=== PATIENT | female | born 1955 | race Caucasian/White ===

== ENCOUNTER → 2016-09-30 | Outpatient (CLI) | payer BC ==
--- NOTE | 2016-10-01 07:07 | MM ---
Reason for exam: screening (asymptomatic). Last mammogram was performed 1 year and 2 months ago. History: Patient is postmenopausal. Family history of breast cancer in mother at age 75 and breast cancer in sister at age 50. Physical Findings: A clinical breast exam by your physician is recommended on an annual basis and results should be correlated with mammographic findings. MG 3D Screening Mammo W/Cad Bilateral CC and MLO view(s) were taken. Prior study comparison: July 24, 2015, bilateral MG 3d screening mammo w/cad. There are scattered fibroglandular densities. No significant changes when compared with prior studies. ASSESSMENT: Benign, BI-RAD 2 RECOMMENDATION: Routine screening mammogram of both breasts in 1 year.
== END | disposition home or self-care (01) ==
LOC: RADMAMWWP 07:03
PROVIDERS: ATTEND Family Medicine
DX: Z12.31 Encounter for screening mammogram for malignant neoplasm of breast (principal)
CPT/HCPCS: 77063; G0202

== ENCOUNTER → 2018-02-26 | Outpatient (CLI) | payer BC ==
--- NOTE | 2018-02-27 12:13 | MM ---
Reason for exam: screening (asymptomatic). Last mammogram was performed 1 year and 5 months ago. History: Patient is postmenopausal. Family history of breast cancer in mother at age 75 and breast cancer in sister at age 50. Physical Findings: A clinical breast exam by your physician is recommended on an annual basis and results should be correlated with mammographic findings. MG 3D Screening Mammo W/Cad Bilateral CC and MLO view(s) were taken. Prior study comparison: September 30, 2016, bilateral MG 3d screening mammo w/cad. July 24, 2015, bilateral MG 3d screening mammo w/cad. The breast tissue is heterogeneously dense. This may lower the sensitivity of mammography. Stable benign calcifications. There is no discrete abnormality. No significant changes when compared with prior studies. ASSESSMENT: Benign, BI-RAD 2 RECOMMENDATION: Routine screening mammogram of both breasts in 1 year.
== END | disposition home or self-care (01) ==
LOC: RADMAMWWP 07:17
PROVIDERS: ATTEND Family Medicine
DX: Z12.31 Encounter for screening mammogram for malignant neoplasm of breast (principal)
CPT/HCPCS: 77063; 77067

== ENCOUNTER → 2020-03-23 | Outpatient (CLI) | payer BC ==
--- NOTE | 2020-03-24 09:42 | MM ---
Reason for exam: screening (asymptomatic). Last mammogram was performed 2 years and 1 month ago. History: Patient is postmenopausal. Family history of breast cancer in mother at age 75 and breast cancer in sister at age 50. Physical Findings: A clinical breast exam by your physician is recommended on an annual basis and results should be correlated with mammographic findings. MG 3D Screening Mammo W/Cad Bilateral CC and MLO view(s) were taken. Prior study comparison: February 26, 2018, bilateral MG 3d screening mammo w/cad. September 30, 2016, bilateral MG 3d screening mammo w/cad. There are scattered fibroglandular densities. There are benign appearing vascular calcifications in the right breast. There is chronic nodularity in the left breast. There is no discrete abnormality. ASSESSMENT: Benign, BI-RAD 2 RECOMMENDATION: Routine screening mammogram of both breasts in 1 year.
== END | disposition home or self-care (01) ==
LOC: RADMAMWWP 08:14
PROVIDERS: ATTEND Family Medicine
DX: Z12.31 Encounter for screening mammogram for malignant neoplasm of breast (principal); Z80.3 Family history of malignant neoplasm of breast
CPT/HCPCS: 77063; 77067

== ENCOUNTER → 2021-05-02 | Outpatient (CLI) | payer BC ==
--- NOTE | 2021-05-03 15:05 | MM ---
Reason for exam: screening (asymptomatic). Last mammogram was performed 1 year and 1 month ago. History: Patient is postmenopausal. Family history of breast cancer in mother at age 75 and breast cancer in sister at age 50. Physical Findings: A clinical breast exam by your physician is recommended on an annual basis and results should be correlated with mammographic findings. MG 3D Screening Mammo W/Cad Bilateral CC and MLO view(s) were taken. Prior study comparison: March 23, 2020, bilateral MG 3d screening mammo w/cad. February 26, 2018, bilateral MG 3d screening mammo w/cad. The breast tissue is heterogeneously dense. This may lower the sensitivity of mammography. There are benign appearing round vascular calcifications bilaterally. There is no discrete abnormality. ASSESSMENT: Benign, BI-RAD 2 RECOMMENDATION: Routine screening mammogram of both breasts in 1 year.
== END | disposition home or self-care (01) ==
LOC: RADMAMWWP 07:22
PROVIDERS: ATTEND Family Medicine
DX: Z12.31 Encounter for screening mammogram for malignant neoplasm of breast (principal); Z78.0 Asymptomatic menopausal state; Z80.3 Family history of malignant neoplasm of breast
CPT/HCPCS: 77063; 77067

== ENCOUNTER → 2022-05-16 | Outpatient (CLI) | payer MEDICARE ==
--- NOTE | 2022-05-17 09:22 | MM ---
Reason for Exam: Screening (asymptomatic). Last screening mammogram was performed 12 month(s) ago. Patient History: Menarche at age 14. First Full-Term at age 20. Postmenopausal. Sister had breast cancer, age 50. Mother had breast cancer, age 75. Risk Values: Leyla 5 year model risk: 7.9%. NCI Lifetime model risk: 25.7%. Prior Study Comparison: 02/26/2018 Bilateral Screening Mammogram, [facility]. 03/23/2020 Bilateral Screening Mammogram, [facility]. 05/02/2021 Bilateral Screening Mammogram, [facility]. Tissue Density: There are scattered fibroglandular densities. Findings: Analyzed By CAD. Benign-appearing vascular calcification bilaterally is redemonstrated. Benign-appearing left axillary lymph nodes are again seen. There is no suspicious new group of microcalcifications or new suspicious mass in either breast. Overall Assessment: Benign, BI-RAD 2 Management: Screening Mammogram of both breasts in 1 year. A clinical breast exam by your physician is recommended on an annual basis and results should be correlated with mammographic findings. Electronically signed and approved by: Logan Schneider M.D.
== END | disposition home or self-care (01) ==
LOC: RADMAMWWP 10:46
PROVIDERS: ATTEND Family Medicine
DX: Z12.31 Encounter for screening mammogram for malignant neoplasm of breast (principal); Z80.3 Family history of malignant neoplasm of breast; Z78.0 Asymptomatic menopausal state
CPT/HCPCS: 77063; 77067

== ENCOUNTER → 2023-06-13 | Outpatient (CLI) | payer MEDICARE ==
--- NOTE | 2023-06-13 15:21 | CT ---
CTA abdomen HISTORY: 177.89. COMPARISON: None. TECHNIQUE: Multiple axial images were obtained through the abdomen before and after the uneventful me nstruation nonionic IV contrast. Exam was performed according to CTA protocol. Coronal and sagittal r econstructions are generated and reviewed.3-D postprocessing was performed.. FINDINGS: Lung bases are clear. There is fatty infiltration of liver. The gallbladder is contracted and is hyperdense with calcified wall and septations. In addition there is an ill-defined 1.7 x 3.2 cm hypodense mass in the pancreas. These findings are highly suspicious for neoplasm. MRI of the abdomen with attention to the gallbladder and pancreas is recommended for fu rther evaluation. There is no splenomegaly or adrenal mass. There is no solid renal mass or hydronephrosis. There is no retroperitoneal adenopathy or hemorrhage in the caliber of the abdominal aorta is normal in. There is no evidence of a aortic aneurysm. The bowel loops are normal in caliber and is without dilatation or obstruction. No inflammatory cuevas es identified in the bowel wall and mesentery. There is no free intraperitoneal air or fluid. Findings osseous structures are grossly intact. IMPRESSION: 1. No abdominal aortic aneurysm. 2. Pancreatic head mass and markedly abnormal gallbladder. Neoplasm is not excluded. MRI of the abdom en with attention to the gallbladder and pancreas is recommended for further evaluation. 3. Fatty infiltration liver.
== END | disposition home or self-care (01) ==
LOC: RADCTMAIN 12:10
PROVIDERS: ATTEND Family Medicine
DX: K76.0 Fatty (change of) liver, not elsewhere classified (principal); I77.89 Other specified disorders of arteries and arterioles; K86.89 Other specified diseases of pancreas; K82.8 Other specified diseases of gallbladder
CPT/HCPCS: 74175; Q9967

== ENCOUNTER → 2023-07-25 | Outpatient (CLI) | payer MEDICARE ==
[2023-07-25 15:39] LABS: African American GFR (CKD) >90 (>60 ml/min/1.73 sqM); Blood Urea Nitrogen 11 mg/dL (7-17); Non-African American GFR(CKD) >90 (>60 ml/min/1.73 sqM)
--- NOTE | 2023-07-25 18:49 | CT ---
EXAMINATION TYPE: CT chest w con DATE OF EXAM: 07/25/2023 COMPARISON: None HISTORY: Family Hx of non specified CA. CT DLP: 521 mGycm, Automated exposure control for dose reduction was used. CONTRAST: Performed injected with 100 ml mL of Isovue 300. TECHNIQUE: Axial images were obtained at 5 mm thick sections. Reconstructed images are reviewed on [employer] computer in the coronal plane. FINDINGS: Right lobe thyroid is enlarged and heterogenous. Additional evaluation with ultrasound is r ecommended. There is some mild soft tissue thickening in the right suprahilar region. Series 4 image 23. Short-te rm follow-up is recommended. No enlarged mediastinal or hilar adenopathy is evident. The ascending aorta diameter at the level o f the main pulmonary artery is 3.9 cm. The main pulmonary artery diameter at the bifurcation is 3.[address] sections are obtained through the upper abdomen. Large gallstone may be present. Density w ithin the gallbladder is somewhat increased. Additional evaluation with ultrasound is recommended. Un derlying mass should be considered. Common bile duct appears prominent IMPRESSION: 1. Mild increased soft tissue density in the right suprahilar region. Short-term follow-up is recomme nded. 2. Increased density within the gallbladder may be present. This could be related to the gallstones w hich are present. Underlying mass however should be considered. Follow-up ultrasound gallbladder is r ecommended.
== END | disposition home or self-care (01) ==
LOC: RADCTMAIN 14:20
PROVIDERS: ATTEND Internal Medicine
DX: I10 Essential (primary) hypertension (principal); Z80.8 Family history of malignant neoplasm of other organs or systems
CPT/HCPCS: 82565; 84520; 71260; 36415; Q9967

== ENCOUNTER → 2024-08-11 | Outpatient (CLI) | payer MEDICARE ==
--- NOTE | 2024-08-11 14:57 | MM ---
Reason for Exam: Screening (asymptomatic). Last mammogram was performed 1 year(s) and 1 month(s) ago. Patient History: Menarche at age 14. First Full-Term at age 20. Postmenopausal. Sister had breast cancer, age 50. Mother had breast cancer, age 75. Risk Values: Leyla 5 year model risk: 8.1%. NCI Lifetime model risk: 23.9%. Prior Study Comparison: 05/02/2021 Bilateral Screening Mammogram, [facility]. 05/16/2022 Bilateral MG 3D screening mammo w/cad, [facility]. 06/23/2023 Bilateral MG 3D screening mammo w/cad, [facility]. Tissue Density: The breasts are heterogeneously dense, which may obscure small masses. Findings: Analyzed By CAD. There is no suspicious group of microcalcifications or new suspicious mass in either breast. Overall Assessment: Benign, BI-RAD 2 Management: Screening Mammogram of both breasts in 1 year. . Patient should continue monthly self-breast exams. A clinical breast exam by your physician is recommended on an annual basis. This exam should not preclude additional follow-up of suspicious palpable abnormalities. Note on Leyla scores and lifetime risk: 1. A Leyla score greater than 3% is considered moderate risk. If this is the case, consider specialist referral to assess eligibility for a risk reducing agent. 2. If overall lifetime risk for the development of breast cancer is 20% or higher, the patient may qualify for future screening with alternating mammogram and breast MRI. [facility], , 08/11/2024 10:42 AM. Electronically signed and approved by: Guillermo Chapin M.D. Radiologis
== END | disposition home or self-care (01) ==
LOC: RADMAMWWP 10:04
PROVIDERS: ATTEND Family Medicine
DX: Z12.31 Encounter for screening mammogram for malignant neoplasm of breast (principal); R92.333 Mammographic heterogeneous density, bilateral breasts; Z80.3 Family history of malignant neoplasm of breast; Z78.0 Asymptomatic menopausal state
CPT/HCPCS: 77063; 77067

== ENCOUNTER 2024-08-20 06:18 | Day surgery (SDC) | payer MEDICARE ==
[2024-08-20 06:43] VITALS: RESP 16; TEMP 99.1
[2024-08-20] MEDS: fentaNYL (PF) 50 MCG/ML 2 ML AMP IVP ONE (07:20)
[2024-08-20] MEDS: MIDAZOLAM 2 MG/2 ML VIAL IVP ONE ×2 (07:20→07:21)
[2024-08-20] MEDS: BENZOCAINE SPRAY 1 EACH MUCOUS MEM ONE (07:20)
[2024-08-20] MEDS: SODIUM CHLORIDE 0.9% 500 ML 500 ML IV ONE (07:36)
--- NOTE | 2024-08-20 07:40 | P.PCN ---
Date of Procedure: 08/20/24 Description of Procedure: Indication: Aortic stenosis Procedure Description: After explaining the procedure to the patient, it's risk and complications, blood pressure, heart rate and O2 saturation were monitored. The throat was sprayed with Cetacaine. Patient received 3 mg intravenous Versed, 50 mcg intra venous fentanyl. The probe was introduced into the esophagus without difficulty. Images were obtained. Following that, the probe was removed. There was no immediate complication. Findings: Left atrial size is dilated, left atrial appendage is normal. Left ventricular size and systolic function are normal. The mitral valve revealed mitral annulus calcification. The aortic valve appears to be a bicuspid aortic valve, heavily calcified with a raphe and reduced opening. Tricuspid valve is normal. Descending thoracic aorta appears to be normal. No pericardial effusion was noted. Contrast bubble study revealed no shunting across the interatrial septum with Valsalva maneuver. Doppler: Pulse wave and color Doppler were obtained, and revealed mild mitral and tricuspid regurgitation with moderate aortic regurgitation. The peak gradient across the aortic valve was 65 mmHg with a mean of 37 mmHg. There was no shunting by color Doppler study. Conclusion: 1. Dilated left atrium with normal appearance of the left atrial appendage 2. Normal ventricular size and systolic function 3. Severe aortic stenosis with probable bicuspid aortic valve and raphe, heavily calcified. Peak gradient of 65 mmHg with a mean of 37 mmHg 4. Moderate aortic regurgitation 5. Mild mitral and tricuspid regurgitation 6. No shunting across the interatrial septum Duration of sedation: 15 minutes.
[2024-08-20] MEDS ORDERED: SODIUM CHLORIDE 0.9% 1,000 ML IV SCH (07:45)
[2024-08-20] MEDS ORDERED: amLODIPine 10 MG TAB PO SCH (09:00)
[2024-08-20] MEDS ORDERED: ATORVASTATIN 20 MG TAB PO SCH (09:00)
[2024-08-20 09:10] VITALS: BP 113/55; PULSE 88
== END 2024-08-20 08:37 | disposition home or self-care (01) ==
LOC: CATHCVL 06:18
PROVIDERS: ATTEND Internal Medicine Interventional Cardiology
DX: I08.3 Combined rheumatic disorders of mitral, aortic and tricuspid valves (principal); I35.0 Nonrheumatic aortic (valve) stenosis; I10 Essential (primary) hypertension; E78.2 Mixed hyperlipidemia; Z79.82 Long term (current) use of aspirin; Z87.891 Personal history of nicotine dependence
CPT/HCPCS: 93312; 93320; 93325; J2250; J3010

== ENCOUNTER 2024-09-23 06:24 | Day surgery (SDC) | payer MEDICARE ==
[~2024-09-23 06:24] MED LIST: ALPRAZolam 0.25 MG TAB PO PRN; ALPRAZolam 0.5 MG TAB PO PRN; ASPIRIN 325 MG TAB PO STA; ATORVASTATIN 80 MG TAB PO STA; NITROGLYCERIN SL TABS 0.4 MG TAB SUBLINGUAL PRN; SODIUM CHLORIDE 0.9% 1,000 ML in EMPTY BAG 1 BAG IV SCH
[2024-09-23] MEDS: IV FLUID CONTINUATION 1,000 ML IV ONE (07:16)
[2024-09-23 07:40] VITALS: RESP 16; TEMP 98.5
[2024-09-23] MEDS: MIDAZOLAM 2 MG/2 ML VIAL IVP ONE (07:55)
[2024-09-23] MEDS: fentaNYL (PF) 50 MCG/ML 2 ML AMP IVP ONE (07:55)
[2024-09-23] MEDS: LIDOCAINE 1% INJ 10MG/ML (20 ML MDV) SQ ONE (07:56)
[2024-09-23] MEDS: VERAPAMIL SYRINGE (5 MG/10 ML) INTRAARTER ONE (07:58)
[2024-09-23] MEDS: HEPARIN SODIUM,PORCINE (1 ML) 2,500 UNIT in SODIUM CHLORIDE 0.9% 250 ML IRRIGATION PRN (08:01)
[2024-09-23] MEDS: HEPARIN SODIUM,PORCINE 10,000 UNIT in SODIUM CHLORIDE 0.9% 1,000 ML IRRIGATION PRN (08:01)
[2024-09-23] MEDS: HEPARIN SODIUM 1,000 UN/ML (10ML VL) IV ONE (08:14)
[2024-09-23 08:25] LABS: O2 Sat Blood Gas 76.4 %
[2024-09-23] MEDS: IOPAMIDOL-370 100ML BTL INJ ONE (08:36)
[2024-09-23] MEDS ORDERED: RX INFO: IV CONTRAST WAS GIVEN 1 EACH MISC MISCELLANE PRN (08:42)
[2024-09-23] MEDS ORDERED: SODIUM CHLORIDE 0.9% 1,000 ML IV SCH (08:45)
--- NOTE | 2024-09-23 08:53 | P.CARDCATH ---
Date of Procedure: 09/23/24 Description of Procedure: Cardiac Catheterization: The patient is a 69-year-old female with a history of hypertension hyperlipidemia history of severe aortic stenosis who has been complaining of significant progression of her dyspnea on exertion. Recommendations were made regarding cardiac catheterization, the risks and the complications were discussed with the patient who is in full understanding and agreement. Procedure Description: Patient was brought to foundry laborer coreroom in fasting semi-sedated state after receiving Fentanyl and Benadryl achieiving moderate conscious sedated state. Using Xylocaine Anesthesia and modified Seldinger technique, a 6-Niuean sheath was introduced in the right radial artery . The right venous access in the right basilic vein was exchanged to a 6 Niuean sheath. Right heart catheterization was performed using [place]-Susie catheter multiple samples and pressures were obtained. Cardiac output by thermodilution was calculated. Subsequently, selective coronary angiography was performed using a 5-Niuean 3.5 bend right Martha and 4 bend left Martha catheter. Multiple views of the coronary artery including hemiaxial views were obtained. The right Martha catheter was used to cross the aortic valve and LVEDP was calculated. A 5 Niuean pigtail was introduced in the ascending aorta and an GREEK view of the ascending aorta was performed. Following that, catheter and sheath were removed. Hemostasis was obtained with deployment of vascular band . There was no immediate complication. Patient was returned to room in stable condition. Of note, the patient received a total of 3500 units of intravenous heparin as well as intra-arterial verapamil. Findings: Fluoroscopy: Severe calcification of the aortic valve and mitral annulus were noted Left main: This is a large size vessel, bifurcating into LAD and left circumflex, left main has no significant obstructive disease. LAD: This is a large size vessel, reaching to the apex tapers down in the distal third. Giving rise to 2 large diagonal branch in the proximal segment. At the takeoff of the second diagonal branch the LAD has an 80 to 90% stenosis with a 70% plaque in the proximal segment of the diagonal branch. The rest of the vessel has no high-grade stenosis. Left circumflex: This is a nondominant vessel giving rise to a moderately sized obtuse marginal branch that has no evidence of high-grade stenosis. RCA: This is a large size vessel, bifurcating into PDA and PLV the PDA reaches to the inferoapical wall. The right coronary artery and its branches have no significant obstructive disease Left Ventriculogram: Not performed. Aortogram: Performed in the GREEK view and revealed a dilated ascending aorta with possible bicuspid aortic valve and 2+ aortic regurgitation Hemodynamics: Pulmonary artery saturation 76%, right atrial saturation 77%, femoral artery saturation 94%. Cardiac output by Ron 6.8 L/min with a cardiac index of 4.0 L/min/m. Cardiac output by thermodilution 9.9 L/min with an index of 5.9 L/min/m. Pulmonary artery systolic pressure of 38 with a diastolic of 8 and a mean of 24 mmHg. Pulmonary capillary wedge pressure A-wave of 26 with a V wave of 18 and a mean of 14 mmHg. Right ventricular systolic pressure of 50 with an end-diastolic of 8 mmHg. Right atrium A wave of 10 with a V wave of 4 with a mean of 3 mmHg. Left ventricle end-diastolic pressure of 10 to 12 mmHg. Left ventricular systolic pressure of 198 mmHg with an ascending aorta pressure of 110 mmHg with a peak to peak gradient of 88 mmHg. Mean aortic valve gradient of 75 mmHg. Conclusion: 1. Calcified aortic valve and mitral valve 2. Severe stenosis in the proximal LAD involving the takeoff of the second diagonal branch 3. Severe aortic stenosis 4. Mild pulmonary hypertension Recommendations: In view of the finding I have recommended to proceed with evaluation for aortic valve replacement and coronary bypass grafting. The findings and the recommendations were discussed with the patient and the family and they were in full understanding and agreement. Duration of sedation is 44 minutes.
[2024-09-23] MEDS ORDERED: MONTELUKAST 10 MG TAB PO SCH (09:00)
[2024-09-23] MEDS ORDERED: amLODIPine 10 MG TAB PO SCH (09:00)
[2024-09-23] MEDS ORDERED: ATORVASTATIN 20 MG TAB PO SCH (09:00)
[2024-09-23 11:28] VITALS: BP 137/79; PULSE 86
[2024-09-23] MEDS ORDERED: PANTOPRAZOLE 40 MG TABLET PO SCH (12:15)
== END 2024-09-23 11:38 | disposition home or self-care (01) ==
LOC: CATHCVL 06:24
PROVIDERS: ATTEND Internal Medicine Interventional Cardiology
DX: I25.10 Atherosclerotic heart disease of native coronary artery without angina pectoris (principal); I25.83 Coronary atherosclerosis due to lipid rich plaque; I10 Essential (primary) hypertension; E78.5 Hyperlipidemia, unspecified; I35.0 Nonrheumatic aortic (valve) stenosis; I08.3 Combined rheumatic disorders of mitral, aortic and tricuspid valves; I77.810 Thoracic aortic ectasia; Z79.899 Other long term (current) drug therapy; Z87.891 Personal history of nicotine dependence
CPT/HCPCS: 93460; 93567; 85018; 82810; C1769 ×3; C1894; C1751; J2250; J1644 ×3; J2003; J3010; Q9967

== ENCOUNTER → 2024-11-15 | Outpatient (CLI) | payer MEDICARE ==
[2024-11-15 08:44] LABS: INR 1.0 (<1.2); Partial Thromboplastin Time 23.5 sec (22.0-30.0); Prothrombin Time 11.2 sec (10.0-12.5)
--- NOTE | 2024-11-15 08:50 | XR ---
EXAMINATION TYPE: XR chest 2V DATE OF EXAM: 11/15/2024 8:35 AM COMPARISON: Chest radiographs from 02/02/2010 TECHNIQUE: XR chest 2V Frontal and lateral views of the chest, CT chest 07/25/2023. CLINICAL INDICATION:Female, 69 years old with history of I25.10 ATHLS CARDIOVASCULAR DISEASE; FINDINGS: Lungs/Pleura: There is no evidence of pleural effusion, focal consolidation, or pneumothorax. Pulmonary vascularity: Unremarkable. Heart/mediastinum: Cardiomediastinal silhouette is unremarkable. Atherosclerotic calcifications are seen in the aorta. Musculoskeletal: No acute osseous pathology. IMPRESSION: No acute cardiopulmonary disease/process. [facility], , 11/15/2024 8:47 AM
[2024-11-15 09:03] LABS: Bacteria,Urine Rare /hpf; Bilirubin,Urine Negative (Negative); Blood,Urine Negative (Negative); Budding Yeast,Urine Moderate /hpf; Color,Urine Colorless; Glucose,Urine (UA) Negative (Negative); Hyaline Casts,Urine 1 /lpf (0-2); Ketones,Urine Negative (Negative); Leukocyte Esterase,Urine Large (Negative); Mucus,Urine Rare /hpf; Nitrite,Urine Positive (Negative); PH, Urine 7.0 (5.0-8.0); Protein,Urine Negative (Negative); RBC,Urine 1 /hpf (0-5); Specific Gravity,Urine 1.010 (1.001-1.035); Squamous Epithelial Cell,Urine <1 /hpf (0-4); Urobilinogen,Urine <2.0 mg/dL (<2.0); WBC,Urine 85 /hpf (0-5)
--- NOTE | 2024-11-15 10:06 | US ---
EXAMINATION TYPE: US vein mapping BILAT DATE OF EXAM: 11/15/2024 9:27 AM COMPARISON: NONE CLINICAL INDICATION: Female, 69 years old with history of OPEN HEART; , Preop- Cardiac Surgery TECHNIQUE: Grayscale and color Doppler imaging of the lower extremity venous system. SIDE PERFORMED: Bilateral FINDINGS: PATIENT HISTORY: Smoker: No Heart Disease: Yes Previous DVT: No Vascular Surgery: No Discoloration: No Hypertension: Yes Diabetes: No Paralysis: No Varicosities: No Edema: No DUPLEX FINDINGS: Greater Saphenous: Color flow seen Lesser Saphenous: Color flow seen Measurements in mm: Right Greater Saphenous: Groin: 6.4 x 7.0 mm High Thigh: 4.0 x 5.1 mm Mid Thigh: 3.7 x 4.3 mm Above Knee: 3.7 x 4.0 mm Knee: 2.8 x 4.3 mm Below Knee: 3.2 x 3.7 mm Mid Calf: 2.7 x 4.0 mm At Ankle: 3.0 x 3.7 mm Right Lesser Saphenous: Knee: 3.5 x 3.5 mm Below Knee: 3.1 x 3.6 mm Mid Calf: Unable to follow mm Left Greater Saphenous: Groin: 10.2 x 14.4 mm High Thigh: 4.2 x 6.1 mm Mid Thigh: 3.7 x 4.8 mm Above Knee: 4.2 x 4.4 mm Knee: 4.8 x 5.1 mm Below Knee: 3.5 x 5.8 mm Mid Calf: 3.2 x 5.4 mm At Ankle: 1.6 x 3.2 mm Left Lesser Saphenous: Knee: 2.9 x 3.3 mm Below Knee: Unable to follow mm IMPRESSION: 1. No evidence for occlusion. 2. GSV measurements listed above. 3. Performing surgeon to determine viability as conduit. [facility], , 11/15/2024 10:04 AM
--- NOTE | 2024-11-15 10:07 | US ---
EXAMINATION TYPE: Pre-Operative Non-Invasive Evaluation of the hand for Potential Radial Artery Xavier wade, Measurements only DATE OF EXAM: 11/15/2024 9:13 AM CLINICAL INDICATION: Female, 69 years old with history of OPEN HEART; , Preop- Cardiac Surgery TECHNIQUE:Grayscale and color Doppler imaging of the radial artery(s) SIDE PERFORMED: Left FINDINGS: Dominant hand: Right Duplex Findings: Radial Artery: Color flow seen Measurements in mm, transverse view: Left Radial: 19 x 25 mm Proximal: 17 x 30 mm Mid: 19 x 26 mm Distal: 18 x 26 mm IMPRESSION: 1. No evidence for vascular occlusion. 2. Measurements as described above. [facility], , 11/15/2024 10:05 AM
--- NOTE | 2024-11-15 10:09 | US ---
EXAMINATION TYPE: US carotid duplex BILAT DATE OF EXAM: 11/15/2024 COMPARISON: NONE CLINICAL INDICATION: Female, 69 years old with history of OPEN HEART; Leaky valve and blockages in he art Additional History: .... TECHNIQUE: Grayscale, color Doppler and spectral Doppler evaluation of the bilateral carotid systems and vertebral arteries. Indirect Doppler criteria was utilized. FINDINGS: EXAM MEASUREMENTS: RIGHT: Peak Systolic Velocity (PSV) cm/sec ----- Right CCA: 79 ----- Right ICA: 116 ----- Right ECA: 113 ICA/CCA ratio: 1.5 RIGHT: End Diastole cm/sec ----- Right CCA: 20 ----- Right ICA: 35 ----- Right ECA: 18 LEFT: Peak Systolic Velocity (PSV) cm/sec ----- Left CCA: 95 ----- Left ICA: 99 ----- Left ECA: 65 ICA/CCA ratio: 1.0 LEFT: End Diastole cm/sec ----- Left CCA: 19 ----- Left ICA: 29 ----- Left ECA: 10 VERTEBRALS (direction of flow): Right Vertebral: Antegrade Left Vertebral: Antegrade Rhythm: Normal [employer]IT SYSTEM DIRECTOR NOTES: Calcified plaque seen bilateral CCA bulbs, no intimal thickening or elevated veloc ities seen. Incidental - right thyroid nodule = 2.9 x 2.5 x 2.5 cm Color Doppler imaging shows patency with blood flow throughout the carotid artery. Spectral waveforms are within normal limits. IMPRESSION: Mild atherosclerotic plaque within the bilateral CCA bulbs. Right: No hemodynamically significant stenosis. Left: No hemodynamically significant stenosis. Dominant right thyroid lobe nodule measuring up to 2.9 cm. Recommend further evaluation with outpatie nt thyroid ultrasound. Criteria for Assigning % of Stenosis / Diameter reduction (Estimation based on the indirect measurements of the internal carotid artery velocities (ICA PSV). 1. Normal (no stenosis)=ICA PSV < 180 cm/s: ratio < 2.0: ICA EDV<40 cm/s. 2. Less than 50% stenosis=ICA PSV < 180 cm/s: ratio < 2.0: ICA EDV<40 cm/s. 3. 50 to 69% stenosis=ICA PSV of 180 to 230 cm/s: ration 2.0 ? 4.0: ICA EDV 40-100 cm/s. PSV 125-180 cm/sec and ICA/CCA PSV Ratio ? 2.0 is also consistent with 50-69% stenosis 4. Greater than 70% stenosis to near occlusion= ICA PSV > 230 cm/s: ratio > 4.0: ICA EDV > 100 cm/s. 5. Near occlusion= ICA PSV velocities may be low or undetectable: variable ratio and ICA EDV. 6. Total occlusion=unable to detect flow. [facility], , 11/15/2024 10:06 AM
[2024-11-15 10:11] LABS: Basophils # (A) 0.04 X 10*3/uL (0.00-0.10); Basophils % (A) 0.7 %; Eosinophils # (A) 0.22 X 10*3/uL (0.04-0.35); Eosinophils % (A) 3.6 %; HCT 42.5 % (37.2-46.3); HGB 14.1 g/dL (12.0-15.0); Immature Grans, Automated 0.20 %; Lymphocytes # (A) 1.16 X 10*3/uL (0.90-5.00); Lymphocytes % (A) 18.9 %; MCH 32.0 pg (27.0-32.0); MCHC 33.2 g/dL (32.0-37.0); MCV 96.4 FL (80.0-97.0); Monocytes # (A) 0.68 X 10*3/uL (0.20-1.00); Monocytes % (A) 11.1 %; NRBC Per 100 WBC 0 X 10*3/uL (0.00-0.01); Neutrophils # (A) 4.04 X 10*3/uL (1.80-7.70); Neutrophils % (A) 65.5 %; Platelet Count 209 X 10*3/uL (140-440); RBC 4.41 X 10*6/uL (4.10-5.20); RDW 12.0 % (11.5-14.5); WBC 6.15 X 10*3/uL (4.50-10.00)
== END | disposition home or self-care (01) ==
LOC: RADUSWWP 07:49
PROVIDERS: ATTEND Surgery
DX: Z01.810 Encounter for preprocedural cardiovascular examination (principal); I25.10 Atherosclerotic heart disease of native coronary artery without angina pectoris; I65.23 Occlusion and stenosis of bilateral carotid arteries
CPT/HCPCS: 71046; 81001; 83036; 84443; 85025; 85610; 85730; 87070; 87086; 93880; 93970